=== PATIENT | male | born 1985 | race Caucasian/White ===

== ENCOUNTER 2017-08-03 11:55 | Emergency (ER) | payer OTHER ==
[2017-08-03 12:09] VITALS: BP 117/74; PULSE 67; RESP 18; TEMP 99.3; O2SAT 99
--- NOTE | 2017-08-03 12:40 | PD ---
HPI Chief Complaint: Psychiatric Symptoms Time Seen by Provider: 12:26 Travel History International Travel<30 days: No Contact w/Intl Traveler<30days: No Traveled to known affect area: No History of Present Illness HPI This is a 31-year-old male who presents under Morgan act [place] by the [employer]. According to his paperwork he has a history of narcotic use. He told the police that he wanted to hurt himself. The patient reports that he has been having passive suicidal thoughts for the past few weeks. He denies any specific plans. He reports some paranoia as well. Denies any hallucinations. He reports previous history of morphine, benzodiazepine and alcohol use. He reports that he quit using any substances 1 month ago and was recently discharged from [facility]. He has no medical complaints today. [facility] Social History Tobacco Use: Yes Allergies-Medications (Allergen,Severity, Reaction): Coded Allergies: Penicillins (Verified Allergy, Unknown, 08/03/17) Review of Systems Except as stated in HPI: all other systems reviewed are Neg Physical Exam Narrative GENERAL: Somewhat disheveled young male in no acute distress. SKIN: Warm and dry. HEAD: Atraumatic. Normocephalic. EYES: Pupils equal and round. No scleral icterus. No injection or drainage. ENT: No nasal bleeding or discharge. Mucous membranes pink and moist. NECK: Trachea midline. No JVD. CARDIOVASCULAR: Regular rate and rhythm. No murmur appreciated. RESPIRATORY: No accessory muscle use. Clear to auscultation. Breath sounds equal bilaterally. GASTROINTESTINAL: Abdomen soft, non-tender, nondistended. MUSCULOSKELETAL: No obvious deformities. No clubbing. No cyanosis. No edema. NEUROLOGICAL: Awake and alert. No obvious cranial nerve deficits. Motor grossly within normal limits. Normal speech. Data Data Last Documented VS Vital Signs Date Time Temp Pulse Resp B/P (MAP) Pulse Ox O2 Delivery O2 Flow Rate FiO2 08/03/17 14:36 97.9 71 16 125/75 (92) 99 Room Air Orders Orders Complete Blood Count With Diff (08/03/17 12:23) Comprehensive Metabolic Panel (08/03/17 12:23) Thyroid Stimulating Hormone (08/03/17 12:23) Psych Screen (08/03/17 12:23) Drug Screen, Random Urine (08/03/17 12:23) Alcohol (Ethanol) (08/03/17 12:23) Salicylates (Aspirin) (08/03/17 12:23) Tylenol (Acetaminophen) (08/03/17 12:23) Diet Regular Basic (08/03/17 Dinner) Labs Laboratory Tests Test 08/03/17 13:30 08/03/17 16:41 Urine Opiates Screen NEG Urine Barbiturates Screen NEG Urine Amphetamines Screen NEG Urine Benzodiazepines Screen NEG Urine Cocaine Screen NEG Urine Cannabinoids Screen NEG White Blood Count 8.5 TH/MM3 Red Blood Count 5.26 MIL/MM3 Hemoglobin 15.9 GM/DL Hematocrit 47.3 % Mean Corpuscular Volume 89.9 FL Mean Corpuscular Hemoglobin 30.2 PG Mean Corpuscular Hemoglobin Concent 33.6 % Red Cell Distribution Width 15.1 % Platelet Count 191 TH/MM3 Mean Platelet Volume 9.5 FL Neutrophils (%) (Auto) 50.0 % Lymphocytes (%) (Auto) 36.7 % Monocytes (%) (Auto) 9.3 % Eosinophils (%) (Auto) 3.3 % Basophils (%) (Auto) 0.7 % Neutrophils # (Auto) 4.2 TH/MM3 Lymphocytes # (Auto) 3.1 TH/MM3 Monocytes # (Auto) 0.8 TH/MM3 Eosinophils # (Auto) 0.3 TH/MM3 Basophils # (Auto) 0.1 TH/MM3 CBC Comment DIFF FINAL Differential Comment Blood Urea Nitrogen 15 MG/DL Creatinine 1.08 MG/DL Random Glucose 85 MG/DL Total Protein 7.4 GM/DL Albumin 3.9 GM/DL Calcium Level 8.8 MG/DL Alkaline Phosphatase 68 U/L Aspartate Amino Transf (AST/SGOT) 9 U/L Alanine Aminotransferase (ALT/SGPT) 18 U/L Total Bilirubin 0.2 MG/DL Sodium Level 142 MEQ/L Potassium Level 3.9 MEQ/L Chloride Level 107 MEQ/L Carbon Dioxide Level 30.1 MEQ/L Anion Gap 5 MEQ/L Estimat Glomerular Filtration Rate 80 ML/MIN Thyroid Stimulating Hormone 3rd Gen 1.040 uIU/ML Salicylates Level 2.9 MG/DL Acetaminophen Level LESS THAN 2.0 MCG/ML Ethyl Alcohol Level LESS THAN 3 MG/DL MDM Medical Decision Making Medical Screen Exam Complete: Yes Emergency Medical Condition: Yes Medical Record Reviewed: Yes Differential Diagnosis Adjustment reaction, acute psychosis, major depressive disorder, depressive disorder not otherwise specified, substance-induced mood disorder Narrative Course Mental health screening discussed with the patient. Psychiatric screen ordered. This patient Morgan act has been lifted by the psychiatry team. He has no medical issues that warrant further hospitalization. He is stable for discharge. Diagnosis Primary Impression: Medical clearance for psychiatric admission Med/Other Pt SpecificInfo: No Change to Meds Disposition: 01 DISCHARGE HOME Condition: Stable Dada Julien Aug 03, 2017 12:39
[2017-08-03 14:36] VITALS: BP 125/75; TEMP 97.9; O2SAT 99
--- NOTE | 2017-08-03 15:48 | PD ---
History of Present Illness Chief Complaint: Psychiatric Symptoms Time Seen by Provider: 15:31 Travel History International Travel<30 Days: No Contact w/Intl Traveler<30days: No Known affected area: No Legal Status Legal Status: [place] Act History of Present Illness: 31 y/o caucasion male single with a 6 year old daughter that resides with his parents in [place]. Per Morgan Act, "patient has a long history of narcotic use and has attempted to stop cold turkey approximately 1 month ago. Bill was in care of Kobe Goetz . Bill stated that he wants to harm himself and he wants help dealing with these thoughts. 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 He receives food stamps. He smokes 1ppd and denies regular use of alcohol. He states that he is prescribed morphine, valium and benzos by his PCP , Dr. Gerson Frye in [facility]. He has a long history of opiate abuse and participated in the MAT program at [facility] . He was on Subutex for approximately 3 months and his last does was 2 weeks ago. He feels that he no longer needs the Subutex. UDS is negative. Presents alert and oriented. No delusion or paranoia evident. He is well kept and looks his stated age. He alert and oriented. He states that he has been on the valium and benzos for his anxiety and that the medications have been prescribed. He feels that he can continue to manage his opiate use with [facility] as an outpatient. Patient expresses that he knows he has a problem with morphine and that he understands that treatment options. Patient does not meet Morgan Act criteria. He denies suicidal or homicidal ideations. He is currently not demonstrating paranoia or delusions. Will lift the Morgan Act and he will follow up with the MAT team and Kobe Goetz. Dx: Mood Disorder, Substance induced Opiate Abuse Psychiatric History Psychiatric History History of Inpatient Treatment: No Guns or firearms in home: No Social History Hx Alcohol Use: Yes Hx Tobacco Use: Yes Hx Substance Use: Yes Substance Use Type: Alcohol, Prescription Medications, Benzos (Valium,Xanax) Hx of Substance Use Treatment: Yes Allergies-Medications (Allergen,Severity, Reaction): Coded Allergies: Penicillins (Verified Allergy, Unknown, 08/03/17) Mental Status Examination Appearance: Appropriate Consciousness: Alert Orientation: x4 Motor Activity: Normal gait Speech: Unremarkable Language: Adequate Fund of Knowledge: Adequate Attention and Concentration: Adequate Memory: Unremarkable Mood: Appropriate Affect: Appropriate Thought Process & Associations: Intact Thought Content: Appropriate Hallucination Type: None Delusion Type: None Suicidal Ideation: No Suicidal Plan: No Suicidal Intention: No Homicidal Ideation: No Homicidal Plan: No Homicidal Intention: No Insight: Adequate Judgment: Adequate MDM Medical Decision Making Medical Record Reviewed: Yes Assessment/Plan Patient currently does not have a suicidal plan. He is not demonstrating delusions or paranoia. He is articulate about his abuse of opiates and has been through the MAT program at [facility] with [employer] the Morgan Act and he agrees to follow up with Kobe Goetz. Dx: Mood Disorder, Substance induced Opiate Abuse Orders Orders Complete Blood Count With Diff (08/03/17 12:23) Comprehensive Metabolic Panel (08/03/17 12:23) Thyroid Stimulating Hormone (08/03/17 12:23) Psych Screen (08/03/17 12:23) Drug Screen, Random Urine (08/03/17 12:23) Alcohol (Ethanol) (08/03/17 12:23) Salicylates (Aspirin) (08/03/17 12:23) Tylenol (Acetaminophen) (08/03/17 12:23) Results Vital Signs Date Time Temp Pulse Resp B/P (MAP) Pulse Ox O2 Delivery O2 Flow Rate FiO2 08/03/17 14:36 97.9 71 16 125/75 (92) 99 Room Air 08/03/17 12:09 99.3 67 18 117/74 (88) 99 Room Air Laboratory Tests Test 08/03/17 13:30 Urine Opiates Screen NEG Urine Barbiturates Screen NEG Urine Amphetamines Screen NEG Urine Benzodiazepines Screen NEG Urine Cocaine Screen NEG Urine Cannabinoids Screen NEG Diagnosis Primary Impression: Medical clearance for psychiatric admission Eileen Tabares Aug 03, 2017 15:48
[2017-08-03 17:00] LABS: AUTOMATED NEUTROPHIL # 4.2 TH/MM3 (1.8-7.7); BASOPHIL # 0.1 TH/MM3 (0-0.2); BASOPHIL % 0.7 % (0.0-2.0); EOSINOPHIL # 0.3 TH/MM3 (0-0.4); EOSINOPHIL % 3.3 % (0.0-4.0); HEMATOCRIT 47.3 % (39.0-51.0); HEMOGLOBIN 15.9 GM/DL (13.0-17.0); LYMPH % 36.7 % (9.0-44.0); LYMPHOCYTE # 3.1 TH/MM3 (1.0-4.8); MEAN CELL VOLUME 89.9 FL (80.0-100.0); MEAN CORPUSCULAR HEMOGLOBIN 30.2 PG (27.0-34.0); MEAN CORPUSCULAR HGB CONC 33.6 % (32.0-36.0); MEAN PLATELET VOLUME 9.5 FL (7.0-11.0); MONO % 9.3 % (0.0-8.0); MONOCYTE # 0.8 TH/MM3 (0-0.9); PLATELET COUNT 191 TH/MM3 (150-450); RED BLOOD COUNT 5.26 MIL/MM3 (4.50-5.90); RED CELL DISTRIBUTION WIDTH 15.1 % (11.6-17.2); WHITE BLOOD COUNT 8.5 TH/MM3 (4.0-11.0)
[2017-08-03 17:47] LABS: ALBUMIN 3.9 GM/DL (3.4-5.0); ALKALINE PHOSPHATASE 68 U/L (45-117); ALT (GPT) 18 U/L (12-78); AST (GOT) 9 U/L (15-37); BICARBONATE 30.1 MEQ/L (21.0-32.0); BLOOD UREA NITROGEN 15 MG/DL (7-18); CALCIUM 8.8 MG/DL (8.5-10.1); CHLORIDE 107 MEQ/L (98-107); CREATININE 1.08 MG/DL (0.60-1.30); GLOMERULAR FILTRATION RATE 80 ML/MIN (>89); GLUCOSE,RANDOM 85 MG/DL (74-106); SODIUM (NA) 142 MEQ/L (136-145); TOTAL BILIRUBIN ADULT 0.2 MG/DL (0.2-1.0); TOTAL PROTEIN 7.4 GM/DL (6.4-8.2)
[2017-08-03 17:48] LABS: ACETAMINOPHEN LESS THAN 2.0 MCG/ML (10.0-30.0)
== END 2017-08-03 18:33 | disposition home or self-care (01) ==
LOC: NEPJ 11:55
DX: F11.14 Opioid abuse with opioid-induced mood disorder (principal); R45.851 Suicidal ideations; F17.210 Nicotine dependence, cigarettes, uncomplicated; F41.9 Anxiety disorder, unspecified; Z79.899 Other long term (current) drug therapy
CPT/HCPCS: 80053; 80307; 84443; 85025; 99283